=== PATIENT | male | born 1955 | race Caucasian/White ===

== ENCOUNTER 2016-04-13 09:33 | Emergency (ER) | payer BC ==
[~2016-04-13] VITALS: Ht 180.3 cm; Wt 120.6 kg
[~2016-04-13 09:33] MED LIST: ASPIR-LOW81 MG PO; GLIPIZIDE5 MG PO; HYDROCHLOROTH12.5 M3 PO; METFORMIN HCL500 MG PO; PRAVASTATIN SOD80 MG PO
[2016-04-13] MEDS ORDERED: PREDNISONE20 MG PO (12:57)
[2016-04-13] MEDS ORDERED: TORADOL10 MG PO (12:57)
[2016-04-13 13:10] VITALS: BP 118/69
== END 2016-04-13 13:11 | disposition home or self-care (01) ==
LOC: EME 09:33
DX: M50.30 Other cervical disc degeneration, unspecified cervical region (principal); M79.601 Pain in right arm; M25.512 Pain in left shoulder
CPT/HCPCS: 72040; 73030; 99281; 99284; J1885; J7512